=== PATIENT | female | born 1985 | race Asian ===

== ENCOUNTER 2021-08-23 19:06 | Emergency (ER) | payer BC, OTHER, SELFPAY ==
[~2021-08-23] VITALS: Ht 165.1 cm; Wt 57.6 kg
[2021-08-23 19:27] VITALS: BP_SYST 102
--- NOTE | 2021-08-23 19:27 | NUR ---
Patient to ER tent to gown for evaluation.
--- NOTE | 2021-08-23 20:00 | NUR ---
Patient brought in for fever and cough with sore throat, headache, myalgia and tachycardia. No alleviating or exacerbating factors. Otherwise, the patient denies shortness of breath, chest pain, nausea, vomiting, or any other medical complaints at this time.
--- NOTE | 2021-08-23 21:51 | NUR ---
DIANNE Hui at bedside examining patient.
[2021-08-23] MEDS ORDERED: ACETAMINOPHEN 500 MG TABLET PO ONE (22:00)
[2021-08-23 22:56] VITALS: BP_SYST 104
--- NOTE | 2021-08-23 22:56 | NUR ---
Patient given written and verbal discharge instructions and verbalizes understanding. ER MD discussed with patient the results and treatment provided. Patient in stable condition. ID arm band removed. No RX given. Patient educated on pain management and to follow up with PMD. Pain Scale 0/10 Opportunity for questions provided and answered. Medication side effect fact sheet provided.
== END 2021-08-23 22:56 | disposition home or self-care (01) ==
LOC: SED 19:06
DX: B34.9 Viral infection, unspecified (principal); Z20.822 Contact with and (suspected) exposure to COVID-19
CPT/HCPCS: 87426; 99283; U0003; 36415